=== PATIENT | female | born 2000 | race Caucasian/White ===

== ENCOUNTER 2021-05-03 23:36 | Inpatient (IN) ==
[2021-05-04] MEDS ORDERED: OXYTOCIN 30 UNITS/500 ML BAG IV PRN ×2 (00:14→05:07)
[2021-05-04] MEDS: LACTATED RINGER'S 1,000 ML IV PRN ×2 (00:15→01:30)
--- NOTE | 2021-05-04 00:21 | History & Physical Report ---
Date of Service May 04, 2021 Assessment & Plan (1) Normal labor: (2) Gestational diabetes: Plan: admit, monitor, fetus category one. arom as indicated. epidural on demand. anticipate . check hourly blood sugars. History of Present Illness Chief Complaint: contractions Primary Care Provider: Rod Juárez MD Patient is a 20yowf with iup at 38 weeks who presents with contractions. She noted onset several hours ago and have worsened in that time. no lof/vb. +fm. diet controlled GDM with last AC 58%. and Delivery Plans Teen GDM AC u/s's q 4 weeks OB Labs: Blood Type O Positive 10/22/20 Antibody Screen NEGATIVE 10/22/20 Hemoglobin 10.7 g/dL (12.0-16.0) L 02/28/21 Hematocrit 32.6 % (37-47) L 02/28/21 Mean Corpuscular Volume 95.8 fL (80-100) 10/22/20 Platelet Count 182 K/uL (130-400) 10/22/20 Rubella IgG Antibody Immune (Immune) 10/22/20 Rapid Plasma Reagin Nonreactive (Nonreactive) 10/22/20 Hepatitis B Surface Antigen Neg (Neg) 10/22/20 HIV (1&2) Ab and P24 Ag, 4th Gener Neg (Neg) 10/22/20 Glucose 1 Hour 50 gm Load 171 mg/dl (70-130) H 12/21/20 OB Optional Labs: Chlamydia trachomatis RNA NOT DETECTED (NOT DETECTED) 10/22/20 Neisseria gonorrhoeae RNA NOT DETECTED (NOT DETECTED) 10/22/20 Labs Reviewed: low risk cfdna neg cf/sma declined afp Allergies Allergy/AdvReac Type Severity Reaction Status Date / Time Penicillins Allergy Hives Verified 04/29/21 16:20 Home Medications Medication Instructions Recorded Confirmed Type acetone (urine) test (Ketone Urine #50 ea 03/14/21 04/29/21 Rx Test) blood sugar diagnostic (CopanionTouch #150 ea 03/14/21 04/29/21 Rx Verio test strips) blood-glucose meter (OneTouch #1 ea 03/14/21 04/29/21 Rx Verio Flex meter) lancets 33 gauge (OneTouch Delica #150 ea 03/14/21 04/29/21 Rx Plus Lancet) ferrous sulfate 325 mg (65 mg 325 mg PO DAILY 05/03/21 05/03/21 History iron) tablet (Iron (ferrous sulfate)) vit no.95-ferrous 1 tab PO DAILY 05/03/21 05/03/21 History fumarate 28 mg-folic acid 800 mcg tablet () Patient History Medical History Varicella vaccination Surgical History No history of previous surgery Family History Denies family history of Ovarian cancer Breast cancer Colorectal cancer Social History Smoking Status: Never smoker Hx Alcohol Use: No Hx Substance Use: No Preferred Language: Micronesian marital status: Single marital status details: fob Vivek Pradeep (19) Current Living Situation: Significant Other Current Living Situation Comment: lives with fob, no pets current occupational status: unemployed Feels Safe at Home: Yes Safety Concerns: Feels Safe At This Time OB History g1--present [employer] History noncontributory Physical Exam Constitutional: WD/WN, vitals as above Gastrointestinal (Abdomen): soft, gravid, nt Psychiatric: A+Ox3, euthymic affect Genitourinary: cx--6/bulging bad toco--1-3 efm--120s with mod variability, accels to 160s, no decels Results & Data ([facility]) Vital Signs (Past 12 Hours) Vital Signs Temp Pulse Resp BP 05/03/21 23:46 37.1 C 70 18 142/81 H Coding Level of Care Code None Diagnoses Normal labor O80; Z37.9 Gestational diabetes O24.419
[2021-05-04] MEDS ORDERED: ONDANSETRON INJ 2 MG/ML 2 ML VIAL IV PRN (00:38)
[2021-05-04] MEDS ORDERED: NALBUPHINE HCL INJ 10 MG/ML AMP IV PRN (00:38)
[2021-05-04] MEDS ORDERED: NALOXONE HCL 0.4 MG/1 ML VIAL/CARP IV PRN (00:38)
[2021-05-04] MEDS ORDERED: ePHEDrine sulfate 50 MG/ML AMP IV PRN (00:38)
[2021-05-04] MEDS ORDERED: NALOXONE HCL 1 MG in SODIUM CHLORIDE 0.9% 1000ML 1,000 ML IV PRN (00:38)
[2021-05-04] MEDS ORDERED: diphenhydrAMINE 50 MG/ML VIAL IV PRN (00:38)
[2021-05-04] MEDS ORDERED: fentaNYL 2MCG/ML ROPIVACAINE 1.25MG/ML 100 ML BAG EPI PRN (00:38)
[2021-05-04 00:40] LABS: Mean Corpuscular Hgb Conc 32.1 g/dL (32-36)
--- NOTE | 2021-05-04 00:41 | Anesthesiology Consultation ---
Date of Service May 04, 2021 Assessment & Plan (1) Encounter for pre-operative examination: Chart Review Chart Review: Patient NOT seen in Pre Admission Testing and Acceptable Risk for Labor Epidural Consults Requested none History Height/Weight Height: 5 ft 3 in Weight: 53.977 kg Allergies Allergy/AdvReac Type Severity Reaction Status Date / Time Penicillins Allergy Hives Verified 04/29/21 16:20 Medications Home Medications Medication Instructions Recorded Confirmed Last Taken acetone (urine) test (Ketone Urine #50 ea 03/14/21 04/29/21 Unknown Test) blood sugar diagnostic (OneTouch #150 ea 03/14/21 04/29/21 Unknown Verio test strips) blood-glucose meter (OneTouch #1 ea 03/14/21 04/29/21 Unknown Verio Flex meter) lancets 33 gauge (OneTouch Delica #150 ea 03/14/21 04/29/21 Unknown Plus Lancet) ferrous sulfate 325 mg (65 mg 325 mg PO DAILY 05/03/21 05/03/21 05/02/21 iron) tablet (Iron (ferrous sulfate)) vit no.95-ferrous 1 tab PO DAILY 05/03/21 05/03/21 05/02/21 fumarate 28 mg-folic acid 800 mcg tablet () Past Medical History Medical History Varicella vaccination Exercise / Class Metabolic Activity II 4-5 Yardwork/Stairs/Walk up hill Past Family History Family History Denies family history of Ovarian cancer Breast cancer Colorectal cancer Past Surgical History Surgical History No history of previous surgery Past Anesthesia History No Hx of Anesthesia Complications and No Family Hx of Anesthesia Complications History of PONV No Hx of PONV and No Hx of Motion Sickness Social History Smoking Status: Never smoker Hx Alcohol Use: No Hx Substance Use: No Physical Exam Vital Signs Last Vital Signs Temp 37.1 C 05/03/21 23:46 Pulse 74 05/04/21 00:23 Resp 18 05/03/21 23:46 BP 129/76 05/04/21 00:23 Testing Laboratory Results 05/04/21 00:23
[2021-05-04] MEDS ORDERED: SODIUM CHLORIDE 0.9% INJ 10 ML VIAL ONE (00:50)
[2021-05-04] MEDS ORDERED: ePHEDrine sulfate 50 MG/ML AMP ONE (00:50)
[2021-05-04] MEDS ORDERED: fentaNYL citrate 100 MCG/2 ML VIAL ONE (00:51)
[2021-05-04] MEDS ORDERED: fentaNYL 2MCG/ML ROPIVACAINE 1.25MG/ML 100 ML BAG EPI ONE (00:51)
[2021-05-04] MEDS ORDERED: BUPIVACAINE 0.25% 30 ML VIAL ONE (00:51)
[2021-05-04 01:02] LABS: Hematocrit (blood only) 32.1 % (37-47); Hemoglobin 10.3 g/dL (12.0-16.0); Mean Corpuscular Hemoglobin 31.2 pg (25-34); Mean Corpuscular Volume 97.3 fL (80-100); RDW Coefficient of Variation 14.1 % (11.5-14.5); RDW Standard Deviation 49.3 fL (36.4-46.3); White Blood Count 13.21 K/uL (4.8-10.8)
[2021-05-04 01:03] LABS: Platelet Count 148 K/uL (130-400)
[2021-05-04 01:23] LABS: Platelet Estimate Normal (Normal)
--- NOTE | 2021-05-04 02:16 | Labor Progress Brief Note ---
Date of Service May 04, 2021 Subjective not getting great relief with epidural Assessment & Plan (1) Normal labor: Plan: will likely begin second stage soon. fetus reassuring. anticipate . Admission and Anticipated Discharge Date Admission Date: May 04, 2021 Physical Exam Physical Exam: cx--ant lip/c/0 arom--clear toco--q1-2min, spon efm--120s with mod variability, accels present, early decels since arom Results & Data ([facility]) Vital Signs (Past 12 Hours) Vital Signs Temp Pulse Resp BP Pulse Ox 05/04/21 02:13 77 140/94 05/04/21 02:12 64 99 05/04/21 02:10 71 129/80 05/04/21 02:08 76 133/77 05/04/21 02:07 83 100 05/04/21 02:02 85 97 05/04/21 01:57 71 98 05/04/21 01:52 77 100 05/04/21 01:50 76 116/64 05/04/21 01:47 74 141/65 H 98 05/04/21 01:44 74 125/72 05/04/21 01:42 74 99 05/04/21 01:37 66 114/70 98 05/04/21 01:36 18 05/04/21 01:35 60 117/59 L 05/04/21 01:34 18 05/04/21 01:33 78 108/68 05/04/21 01:32 77 18 98 05/04/21 01:31 73 111/56 L 05/04/21 01:30 18 05/04/21 01:29 122/56 L 05/04/21 01:28 18 05/04/21 01:27 64 110/59 L 98 05/04/21 01:24 67 115/67 05/04/21 01:22 68 119/68 98 05/04/21 01:17 77 99 05/04/21 01:13 95 H 92 05/04/21 01:12 94 H 98 05/04/21 00:23 74 129/76 05/03/21 23:46 37.1 C 70 18 142/81 H Coding Level of Care Code None Diagnoses Normal labor O80; Z37.9
[2021-05-04] MEDS ORDERED: oxyCODONE/ACETAMINOPHEN 5mg/325mg TAB PO PRN (05:07)
[2021-05-04] MEDS ORDERED: ACETAMINOPHEN 325 MG TAB PO PRN (05:07)
[2021-05-04] MEDS ORDERED: BENZOCAINE 20% AER SPR 82.5 GM CAN EXT PRN (05:07)
[2021-05-04] MEDS ORDERED: DIPHTHERIA/TETANUS/PERTUSSIS 0.5 ML SYR/VIAL IM ONE (05:07)
[2021-05-04] MEDS ORDERED: HYDROCORTISONE ACETATE 25 MG SUPP PR PRN (05:07)
[2021-05-04] MEDS ORDERED: bisacodyL 10 MG SUPP PR PRN (05:07)
--- NOTE | 2021-05-04 05:11 | Delivery Summary ---
Vaginal Delivery Summary Date of Service May 04, 2021 Vaginal Delivery Summary and 1st Degree LAC Pre-operative Diagnosis: at 38 0/7 gdm labor Post-operative Diagnosis: same Procedure: epidural repair of first degree vaginal laceration EBL: 350cc Anesthesia: epidural Procedure: The patient pushed to deliver a viable male infant in galen position. The nose and mouth were bulb suctioned on the perineum and the rest of the infant was then delivered without difficulty through a loose nuchal cord. The baby was vigorous. The nose and mouth were again bulb suctioned and the infant was placed in the maternal abdomen for drying and attention. Cord was clamped and cut at one minute of life. Cord blood and segment obtained. Placenta delivered spontaneous, intact with a three vessel cord. Cervix/sulci/rectum/perineum were intact. A first degree vaginal laceration was repaired in the normal standard fashion. Hemostasis obtained with dilute pitocin and fundal massage. Apgars were 8/9. Mother and baby doing well at the end of the delivery. MNP Vaginal Delivery Charge Delivery Type Details: and 1st Degree LAC
[2021-05-04] MEDS: PRENATAL VITAMIN 1 TAB PO SCH (09:13)
[2021-05-04] MEDS: DOCUSATE SODIUM 100 MG CAP PO SCH ×2 (09:14→20:22)
[2021-05-04] MEDS: IBUPROFEN 600 MG TAB PO PRN ×2 (11:18→20:22)
[2021-05-05] MEDS: PRENATAL VITAMIN 1 TAB PO SCH (08:34)
[2021-05-05] MEDS: DOCUSATE SODIUM 100 MG CAP PO SCH ×2 (08:34→20:18)
[2021-05-05] MEDS: IBUPROFEN 600 MG TAB PO PRN ×2 (08:34→13:47)
--- NOTE | 2021-05-05 10:13 | Obstetrical Progress Note ---
Date of Service May 05, 2021 Assessment & Plan (1) care and examination: stable, routine care. bottle feeding. rh pos, ri. Day #:: 1 Subjective Ambulation: ambulating normally Voiding: no voiding problems Diet Tolerance:: regular diet Lochia:: Small Feeding Type:: bottle feeding no pain issues. Constitutional: + as per Subjective / HPI Physical Exam Constitutional WD/WN, vitals as above Respiratory normal respiratory effort, lungs clear to auscultation Cardiovascular Rate/Rhythm: regular rate and regular rhythm Gastrointestinal (Abdomen) Inspection/Auscultation: abdomen normal to inspection Percussion/Palpation: abdomen soft Fundus firm 2cm down Musculoskeletal nt calves no edema Neurologic grossly normal Psychiatric A+Ox3, euthymic affect Results & Data ([facility]) Vital Signs (Past 12 Hours) Vital Signs Temp Pulse Resp BP Pulse Ox 05/05/21 09:00 98.1 F 60 18 122/73 100 05/05/21 03:15 98.6 F 53 L 16 115/76 99 05/04/21 23:20 98.6 F 52 L 14 119/76 99
[2021-05-05] MEDS ORDERED: bisacodyL 5 MG TABEC PO SCH (20:00)
[2021-05-06 07:05] LABS: Hematocrit (blood only) 34.7 % (37-47); Hemoglobin 10.9 g/dL (12.0-16.0)
--- NOTE | 2021-05-06 07:06 | Obstetrical Progress Note ---
Date of Service May 06, 2021 Assessment & Plan (1) Encounter for care and examination after delivery: Plan: 20yo PPD 2 s/p at 38 weeks -Continue routine care -Vitals reviewed- HDS, afebrile -Encourage ambulation, regular diet -Pain control with ibuprofen, acetaminophen PRN -cont. bottle feeding -Hgb 10.3 (05/04) -F/u in 6 weeks with OB Admission and Anticipated Discharge Date Admission Date: May 04, 2021 Supervising Physician Co-Signing Physician Notes Resident Physician Supervision Note: I was present with Dr. Alba during the history and exam. I discussed the case with the resident and agree with the findings and plan as documented in the note. Any exceptions or clarifications are listed here: doing well, ready to go home. instructions reviewed. f/u 6wk pp check. Documented By: Claire Arauz MD, FACOG Subjective Ambulation: yes Voiding: yes Passing Gas: yes BM: not yet Diet Tolerance: regular w/o N/V Lochia: small Feeding Type: bottle Current Pain Level(1-10): 1 Review of Systems Review of Systems: Denies fevers/chills. Denies dyspnea, cough. Denies chest pain. Denies breast discharge. Denies dysuria. Denies headache. Denies back pain. Physical Exam Physical Exam: General: Alert, oriented, no acute distress Cardiac: Regular rate and rhythm, normal S1, S2. No murmurs appreciated. Respiratory: Clear to auscultation b/l. No wheezes or crackles. No increased work of breathing or accessory muscle use Abdomen: Soft, nontender, nondistended. Fundus firm and palpable at 1 cm below umbilicus. No guarding or rebound. Skin: No rashes or lesions Extremities: Warm, dry, well-perfused. Mild lower extremity edema. No erythema or swelling. Results & Data ([facility]) Vital Signs (Past 12 Hours) Vital Signs Temp Pulse Resp BP Pulse Ox 05/05/21 23:00 37.0 C 56 L 16 118/76 99 05/05/21 19:36 36.9 C 64 18 134/85 Resident Activity Tracking Resident Involvement: Resident Care Provided Care Provided: OB Delivery
[2021-05-06] MEDS: IBUPROFEN 600 MG TAB PO PRN (08:41)
[2021-05-06] MEDS: PRENATAL VITAMIN 1 TAB PO SCH (08:41)
[2021-05-06] MEDS: DOCUSATE SODIUM 100 MG CAP PO SCH (08:41)
== END 2021-05-06 11:45 | disposition home or self-care (01) | DRG 807 ==
LOC: OPB 23:36 → 4S1 23:38 → 4S2 05-04 08:15